=== PATIENT | female | born 1975 | race Caucasian/White ===

== ENCOUNTER 2018-02-05 18:23 | Emergency (ER) | payer OTHER ==
[2018-02-05] MEDS ORDERED: TETRACAINE HCL 0.5% OPH SOLN 2 ML OD ONE (18:43)
[2018-02-05] MEDS ORDERED: TETRACAINE HCL 0.5% OPH SOLN 2 ML ONE (18:44)
--- NOTE | 2018-02-05 18:55 | ER Document Report ---
ED Medical Screen (RME) - General Chief Complaint: Eye Problem Stated Complaint: BLURRED VISION/RIGHT EYE Time Seen by Provider: 02/05/18 18:42 Notes: 42-year-old female who began having right eye blurred vision. This happened several hours ago. She felt as if an eyelash had gotten in her right eye. She then noticed her vision became blurred. She really denies any headache no facial numbness no tingling. No extremity numbness or tingling. No sore throat. Denies any new medications. Stated her eye is blurred when she looked in the mirror her right pupil is twice the size of her left pupil. TRAVEL OUTSIDE OF THE [place] IN LAST 30 DAYS: No - Related Data Allergies/Adverse Reactions: erythromycin base Allergy (Verified 02/05/18 18:31) nickel Allergy (Verified 02/05/18 18:31) Penicillins Allergy (Verified 02/05/18 18:31) Physical Exam - Vital signs Vitals: Temp Pulse Resp BP Pulse Ox 98.6 F 69 18 120/71 100 02/05/18 18:26 02/05/18 18:26 02/05/18 18:26 02/05/18 18:26 02/05/18 18:26 - Notes Notes: Eyes: Right pupil is 8 mm and sluggish left pupil is 4 mm and responsive to light. There is full extraocular movements. Course - Re-evaluation Re-evalutation: 02/05/18 18:54 Funduscopic exam shows some opacity of the lens in a crescent shape in the 7 o' clock position. I can see him follow the vessels into the optic disc. I do not see papilledema or retinal hemorrhages. The eye was numbed with tetracaine and fluorescein dye was instilled there are no corneal abrasions Toney-Pen was used and the pressure measurements of the right eye are 14-15-14 We will proceed with a CT scan of the brain for further evaluation. She denies using any chemicals or topicals or anything that may have gotten in her eye. While it is not unusual to have Anisacorea this seems to be more extreme than I would expect especially with blurred vision. - Vital Signs Vital signs: Temp Pulse Resp BP Pulse Ox 98.6 F 69 18 120/71 100 02/05/18 18:26 02/05/18 18:26 02/05/18 18:26 02/05/18 18:26 02/05/18 18:26 Doctor's Discharge - Discharge Referrals: OLI BEAR MD [Primary Care Provider] - Follow up as needed
--- NOTE | 2018-02-05 19:43 | RADIOLOGY REPORT (SQ) ---
EXAM DESCRIPTION: CT HEAD WITHOUT COMPLETED DATE/TIME: 02/05/2018 7:20 pm REASON FOR STUDY: Blown pupil right COMPARISON: None. TECHNIQUE: Axial images acquired through the brain without intravenous contrast. Images reviewed wi th bone, brain and subdural windows. Images stored on PACS. All CT scanners at this facility use dose modulation, iterative reconstruction, and/or weight based d osing when appropriate to reduce radiation dose to as low as reasonably achievable (ALARA). [facility]: Dose Right [facility]: CareDose [facility]: Dose Right [facility]: Teradose 4D [facility]: Smart [employer] RADIATION DOSE: CT Rad equipment meets quality standard of care and radiation dose reduction techniq ues were employed. CTDIvol: 53.2 mGy. DLP: 1044 mGy-cm. mGy. LIMITATIONS: None. FINDINGS: VENTRICLES: Normal size and contour. CEREBRUM: No masses. No hemorrhage. No midline shift. No evidence for acute infarction. Normal gra y/white matter differentiation. No areas of low density in the white matter. CEREBELLUM: No masses. No hemorrhage. No alteration of density. No evidence for acute infarction. EXTRAAXIAL SPACES: No fluid collections. No masses. ORBITS AND GLOBE: No intra- or extraconal masses. Normal contour of globe without masses. CALVARIUM: No fracture. PARANASAL SINUSES: No fluid or mucosal thickening. SOFT TISSUES: No mass or hematoma. OTHER: No other significant finding. IMPRESSION: NORMAL BRAIN CT WITHOUT CONTRAST. EVIDENCE OF ACUTE STROKE: NO. COMMENT: Quality ID # [id number]: Final reports with documentation of one or more dose reduction techniques (e.g., Automated exposure control, adjustment of the mA and/or kV according to patient size, use of iterative reconstruction technique) TECHNICAL DOCUMENTATION: JOB ID: [id number] [employer].- All Rights Reserved Reading location - IP/workstation name: [email or web address]
--- NOTE | 2018-02-05 20:52 | ER Document Report ---
ED General - General Chief Complaint: Eye Problem Stated Complaint: BLURRED VISION/RIGHT EYE Time Seen by Provider: 02/05/18 18:42 Notes: Patient is a 42-year-old female without chronic medical problems who presents with a dilated right pupil with associated blurring of vision to the right eye. The patient states that she noticed these symptoms around 2 PM today and have been persistent since that time. She denies any history of similar symptoms in the past. Nothing improves or worsens her symptoms. She denies any pain to the eye. She has not contacted her doctor or an supervisor nuclear medicine regarding today 's concerns. She does not normally use contacts or glasses. She denies any trauma to the eye. She denies any additional symptoms including focal weakness , numbness, headache, neck pain, fever, or constitutional symptoms. TRAVEL OUTSIDE OF THE [place] IN LAST 30 DAYS: No - Related Data Allergies/Adverse Reactions: erythromycin base Allergy (Verified 02/05/18 18:31) nickel Allergy (Verified 02/05/18 18:31) Penicillins Allergy (Verified 02/05/18 18:31) Past Medical History - General Information source: Patient - Social History Smoking Status: Former Smoker Frequency of alcohol use: few times a week Drug Abuse: None Lives with: Spouse/Significant other Family History: Reviewed & Not Pertinent Patient has suicidal ideation: No Patient has homicidal ideation: No Renal/ Medical History: Denies: Hx Peritoneal Dialysis Review of Systems - Review of Systems Notes: Constitutional: Negative for fever. HENT: Negative for sore throat. Eyes: Positive for visual changes. Cardiovascular: Negative for chest pain. Respiratory: Negative for shortness of breath. Gastrointestinal: Negative for abdominal pain, vomiting or diarrhea. Genitourinary: Negative for dysuria. Musculoskeletal: Negative for back pain. Skin: Negative for rash. Neurological: Negative for headaches, weakness or numbness. 10 point ROS negative except as marked above and in HPI. Physical Exam - Vital signs Vitals: Temp Pulse Resp BP Pulse Ox 98.6 F 69 18 120/71 100 02/05/18 18:26 02/05/18 18:26 02/05/18 18:26 02/05/18 18:26 02/05/18 18:26 Interpretation: Normal Notes: PHYSICAL EXAMINATION: GENERAL: Well-appearing, well-nourished and in no acute distress. HEAD: Atraumatic, normocephalic. EYES: Right pupil is 8 mm, sluggishly to nonreactive. Left pupil is 4 mm, reactive although no concentric reaction on the right. Extraocular motions are intact. Ocular pressures documented in triage assessment have been noted. Ocular ultrasound without any evidence of vitreous hemorrhage, vitreous detachment or retinal detachment. ENT: nares patent, oropharynx clear without exudates. Moist mucous membranes. NECK: Normal range of motion, supple without lymphadenopathy LUNGS: Breath sounds clear to auscultation bilaterally and equal. No wheezes rales or rhonchi. HEART: Regular rate and rhythm without murmurs ABDOMEN: Soft, nontender, normoactive bowel sounds. No guarding, no rebound. No masses appreciated. EXTREMITIES: Normal range of motion, no pitting or edema. No cyanosis. NEUROLOGICAL: Face symmetric. Tongue protrudes midline. Extraocular motions intact. Pupils are 2 mm and equally reactive. Normal speech, normal gait. 5 out of 5 strength in both the distal and proximal upper and lower extremities bilaterally. Sensation is grossly intact throughout. Finger to nose testing normal. Pronator drift normal. PSYCH: Normal mood, normal affect. SKIN: Warm, Dry, normal turgor, no rashes or lesions noted. - HEENT Visual acuity- Right eye: 20/25 Visual acuity- Left eye: 20/25 Visual acuity- Both eyes: 20/25 Corrective lenses worn: No - Dr. Nunez made aware. Course - Re-evaluation Re-evalutation: 02/05/18 20:46 Patient presents with a unilateral pupillary dilation on the right without associated pain, visual acuity 20/25 although difficulty with near vision as she states that she cannot read her book without covering the right eye. Ocular pressures were 14-15-14 in triage. No evidence of corneal abrasion on fluorescein exam in triage. Patient has full extraocular motions. Minimal reaction of the pupil on the right to light, no concentric reaction with challenge to the left. Ocular ultrasound at the bedside without any evidence of a retinal or vitreous detachment. No evidence of vitreous hemorrhage. Patient denies any associated pain. Clinical picture does not appear consistent with a cranial nerve palsy, acute stroke given that there is no diplopia or hemianopsia. CT the head obtained in triage is noted to be normal. The patient denies any pain making glaucoma or an acute arterial or venous occlusion unlikely and she also has good vision making these diagnoses unlikely. No risk factors for syphilis. I have discussed with the supervisor nuclear medicine Dr. Stockton who states that the patient's use of a scopolamine patch is likely the etiology particularly given that it is a painless pupillary dilation with maintenance of good distal vision. He will follow the patient up in the clinic in the morning. I have reviewed these results with the patient and she is agreeable follow-up in the morning. They will contact the clinic at 8 AM to schedule an appointment. - Vital Signs Vital signs: Temp Pulse Resp BP Pulse Ox 98.6 F 68 18 116/71 98 02/05/18 21:22 02/05/18 21:22 02/05/18 18:26 02/05/18 21:22 02/05/18 21:22 - Diagnostic Test Radiology reviewed: Image reviewed, Reports reviewed Radiology results interpreted by me: 02/06/18 03:58 CT head: No acute intracranial bleed or mass Discharge - Discharge Clinical Impression: Pupillary dilation, Blurring of visual image of right eye Condition: Good Disposition: HOME, SELF-CARE Additional Instructions: Your seen today for dilation of your right pupil with associated blurring of vision. All of your testing here today suggest that this is related to the scopolamine patch that she used. I have discussed with Dr. Stockton and he agrees. He would like to see you tomorrow in the office. He has asked to contact the number listed in your chart for an appointment after 8 AM tomorrow. Please return to the emergency department if you develop pain in the eye, worsening of your vision, vomiting, confusion, weakness, numbness, or any other symptoms that are concerning to you. Referrals: OLI BEAR MD [ACTIVE STAFF] - Follow up as needed HEYDI STOCKTON MD [ACTIVE STAFF] - Follow up tomorrow (Call after 8 AM to set up an appointment for tomorrow)
[2018-02-05 21:25] VITALS: BP 116/71
== END 2018-02-05 21:30 | disposition home or self-care (01) ==
LOC: ER 18:23
DX: H53.8 Other visual disturbances (principal); H57.04 Mydriasis; Z88.1 Allergy status to other antibiotic agents; Z88.0 Allergy status to penicillin; Z87.891 Personal history of nicotine dependence
CPT/HCPCS: 70450; 99284

== ENCOUNTER 2019-07-27 04:13 | Emergency (ER) | payer OTHER ==
[2019-07-27 07:52] LABS: ABSOLUTE EOSINOPHILS # (AUTO) 0.1 10^3/uL (0.0-0.6); ABSOLUTE LYMPHOCYTES (AUTO) 1.4 10^3/uL (0.5-4.7); ABSOLUTE MONOCYTES (AUTO) 0.4 10^3/uL (0.1-1.4); ABSOLUTE NEUT (AUTO) 7.7 10^3/uL (1.7-8.2); BASOPHILS % (AUTO) 0.2 % (0-2); EOSINOPHILS % (AUTO) 0.5 % (0-6); HEMATOCRIT 38.3 % (36.0-47.0); HEMOGLOBIN 13.1 g/dL (12.0-15.5); MEAN CORPUSCULAR HEMOGLOBIN 32.5 pg (27.0-33.4); MEAN CORPUSCULAR HGB CONC 34.1 g/dL (32.0-36.0); MEAN CORPUSCULAR VOLUME 95 fl (80-97); MONOCYTES % (AUTO) 4.6 % (3-13); PLATELET COUNT 282 10^3/uL (150-450); RED BLOOD COUNT 4.02 10^6/uL (3.72-5.28); RED CELL DISTRIBUTION WIDTH 12.7 % (11.5-14.0); SEGMENTED NEUTROPHILS % (AUTO) 79.7 % (42-78); TOTAL CELLS COUNTED % (AUTO) 100 %; WHITE BLOOD COUNT 9.7 10^3/uL (4.0-10.5)
[2019-07-27 07:53] LABS: ALKALINE PHOSPHATASE 52 U/L (38-126); ANION GAP 8 (5-19); ASPARTATE AMINO TRANSFERASE 19 U/L (14-36); BILIRUBIN,DIRECT 0.3 mg/dL (0.0-0.4); BILIRUBIN,TOTAL 0.4 mg/dL (0.2-1.3); BLOOD UREA NITROGEN 13 mg/dL (7-20); CALCIUM 9.2 mg/dL (8.4-10.2); CARBON DIOXIDE 25 mmol/L (22-30); CHLORIDE 105 mmol/L (98-107); GLUCOSE 99 mg/dL (75-110); POTASSIUM 4.7 mmol/L (3.6-5.0); TOTAL PROTEIN 6.8 g/dL (6.3-8.2)
[2019-07-27 08:24] LABS: APPEARANCE,URINE CLEAR; BILIRUBIN,URINE NEGATIVE (NEGATIVE); COLOR,URINE YELLOW; GLUCOSE, URINE NEGATIVE (NEGATIVE); KETONES,URINE NEGATIVE (NEGATIVE); LEUKOCYTE ESTERASE,URINE NEGATIVE (NEGATIVE); NITRITE,URINE NEGATIVE (NEGATIVE); PROTEIN,URINE NEGATIVE (NEGATIVE); URINE SPECIFIC GRAVITY 1.015; UROBILINOGEN,URINE NEGATIVE mg/dL (<2.0)
--- NOTE | 2019-07-27 09:57 | RADIOLOGY REPORT (SQ) ---
EXAM DESCRIPTION: U/S OB TRANSVAGINAL W/O DOP COMPLETED DATE/TIME: 07/27/2019 9:47 am REASON FOR STUDY: vaginal bleeding + COMPARISON: None. TECHNIQUE: Transvaginal static and realtime grayscale images acquired of the pelvis. Additional dianna cted spectral and color Doppler images recorded. All images stored on PACs. CLINICAL AGE: 7 weeks 1 day [facility].6 LIMITATIONS: None. FINDINGS: UTERUS: No visualized intrauterine . RIGHT ADNEXA: Ovary not identified due to poor acoustical window. No adnexal free fluid. No adnexal masses. LEFT ADNEXA: Normal ovary with normal vascular flow. No adnexal free fluid. 2.2 cm cyst. FREE FLUID: None. OTHER: No other significant finding. IMPRESSION: NO VISUALIZED INTRA- OR EXTRAUTERINE . bHCG LEVEL TOO LOW TO EXPECT VISUALIZATION OF . ECTOPIC CANNOT BE EXCLUDED. FOLLOW-UP ULTRASOUND AND SERIAL BHCG LEVELS STRONGLY RECOMMENDED TO ACCURATELY ASSESS STATU S. Right ovary not identified. COMMENT: HCG levels in early chart 7-8 weeks: 7,560-229,000 mIU/ml * TECHNICAL DOCUMENTATION: JOB ID: [id number] [employer]- All Rights Reserved Reading location - IP/workstation name: [email or web address]
--- NOTE | 2019-07-27 10:53 | ER Document Report ---
ED General - General Chief Complaint: Abdominal Pain >50 Stated Complaint: DIZZINESS/VAGINAL BLEEDING Time Seen by Provider: 07/27/19 10:51 Mode of Arrival: Ambulatory Information source: Patient Notes: 43-year-old female arrives by POV with her Leighton as transfer driver; he is a [place] [employer] assistant and patient works as a software security consultant and just recently got back from [place] on last Monday. On 09 December patient tested positive on a Divehi test and then because she did not trust this test she did another one on Monday and this was positive. Today is Monday. Patient denies any contact with coronavirus while she was in [place] Patient denies any cough or cold or rhinorrhea or symptoms. She does complain of left inguinal pain radiating down her left medial thigh. Patient was having some vaginal bleeding this morning which awoke her from sleep at 330 and she actually fell passed out in the bathroom. Patient's ultrasound today reveals no intra-or extra uterine . However radiologist reports the beta hCG is too low at this time for any correlation. Also cannot exclude ectopic . CBC and CMP were normal urine was normal hCG was 2300. At 1115 I discussed this case with Dr. Jessica Oneill and she advises patient to be seen as outpatient at 10 AM on Monday morning in her office for repeat hCG and possible ultrasound. She advises me to tell the patient that if she has any worsening symptoms to come back immediately and also bedrest vaginal rest and increase fluids TRAVEL OUTSIDE OF THE [place] IN LAST 30 DAYS: Yes - [place] - [facility] Onset: This morning - Related Data Allergies/Adverse Reactions: erythromycin base Allergy (Verified 02/05/18 18:31) nickel Allergy (Verified 02/05/18 18:31) Penicillins Allergy (Verified 02/05/18 18:31) Home Medications: zyrtec. multivitamin Past Medical History - General Information source: Patient - Social History Smoking Status: Former Smoker Cigarette use (# per day): No Chew tobacco use (# tins/day): No Smoking Education Provided: No Frequency of alcohol use: None Drug Abuse: None Lives with: Family Family History: Reviewed & Not Pertinent Patient has suicidal ideation: No Patient has homicidal ideation: No Renal/ Medical History: Denies: Hx Peritoneal Dialysis Review of Systems - Review of Systems Constitutional: No symptoms reported EENT: No symptoms reported Cardiovascular: No symptoms reported Respiratory: No symptoms reported Gastrointestinal: Abdominal pain Genitourinary: No symptoms reported Female Genitourinary: No symptoms reported Musculoskeletal: No symptoms reported Skin: No symptoms reported Hematologic/Lymphatic: No symptoms reported Neurological/Psychological: No symptoms reported Physical Exam - Vital signs Vitals: Temp Pulse Resp BP Pulse Ox 97.9 F 76 20 105/63 100 07/27/19 04:32 07/27/19 04:32 07/27/19 04:32 07/27/19 04:32 07/27/19 04:32 Interpretation: Normal - General General appearance: Appears well - HEENT Head: Normocephalic Eyes: Normal Conjunctiva: Normal Cornea: Normal Extraocular movements intact: Yes Eyelashes: Normal Pupils: PERRL Mouth/Lips: Normal Mucous membranes: Dry Pharynx: Normal Neck: Normal - Respiratory Respiratory status: No respiratory distress Chest status: Nontender Breath sounds: Normal Chest palpation: Normal - Cardiovascular Rhythm: Regular Heart sounds: Normal auscultation Murmur: No Friction rub: No Ligia's crunch: No - Abdominal Inspection: Normal Distension: No distension Bowel sounds: Hypoactive Tenderness: Tender - Lower quadrant on palpation - Genitourinary External exam: Normal Speculum exam: Normal Vaginal bleeding: Mild Bimanuel exam: Normal - Extremities General upper extremity: Normal inspection General lower extremity: Normal inspection - Neurological Neuro grossly intact: Yes Cognition: Normal Orientation: AAOx4 Yossi Coma Scale Eye Opening: Spontaneous [place] Coma Scale Verbal: Oriented [place] Coma Scale Motor: Obeys Commands [place] Coma Scale Total: 15 Speech: Normal Cranial nerves: Normal Cerebellar coordination: Normal - Psychological Associated symptoms: Normal affect - Skin Skin Temperature: Warm Skin Moisture: Dry Course - Vital Signs Vital signs: Temp Pulse Resp BP Pulse Ox 98.3 F 78 16 103/84 99 07/27/19 10:14 07/27/19 10:14 07/27/19 10:14 07/27/19 10:14 07/27/19 10:14 - Laboratory Result Diagrams: 07/27/19 07:24 07/27/19 07:24 Laboratory results interpreted by me: 07/27/19 07/27/19 07/27/19 07:24 07:24 07:34 Seg Neutrophils % 79.7 H Beta HCG, Quant 2303.60 H Urine Blood SMALL H - Diagnostic Test Radiology reviewed: Reports reviewed Critical Care Note - Critical Care Note Total time excluding time spent on procedures (mins): 90 Comments: I discussed the lab findings and ultrasound findings with patient and with Leighton. Also discussed with them the conversation with Dr. Jessica Oneill, OB doctor and advised him to follow-up in her office at 10 AM with her for repeat hCG and possible ultrasound. Also advised her vaginal rest bedrest and only to get up with assistance to bathroom and to return to ER if symptoms exacerbate or persist. Also if URI symptoms arise like with influenza or coronavirus to return with facemask. Since you report that everyone in your job office are sick with URI symptoms advised proper handwashing and facemask as well. Discharge - Discharge Clinical Impression: Elevated serum hCG, Near syncope Abdominal pain Qualifiers: Abdominal location: left lower quadrant Qualified Code(s): R10.32 - Left lower quadrant pain Condition: Good Disposition: HOME, SELF-CARE Additional Instructions: Follow-up with Dr. Jessica Oneill in her office at 1000 hrs. on Monday. Also if URI symptoms arise like with influenza or coronavirus to return with facemask. Since you report that everyone in your job office are sick with URI symptoms advised proper handwashing and facemask as well. Also complete bedrest and vaginal rest and encourage fluids till seen by Dr. Oneill Forms: Return to Work
[2019-07-27 12:12] VITALS: BP 110/62
== END 2019-07-27 12:10 | disposition home or self-care (01) ==
LOC: ER 04:13
DX: Z32.01 Encounter for pregnancy test, result positive (principal); R10.32 Left lower quadrant pain; R10.9 Unspecified abdominal pain; R42 Dizziness and giddiness; M79.652 Pain in left thigh; Z88.0 Allergy status to penicillin; Z88.8 Allergy status to other drugs, medicaments and biological substances; Z88.1 Allergy status to other antibiotic agents; Z87.891 Personal history of nicotine dependence
CPT/HCPCS: 36415; 76817; 80053; 81001; 83690; 84702; 85025; 86900; 86901; 99285

== ENCOUNTER → 2019-07-29 | Outpatient (CLI) | payer OTHER | LOC: OD 11:53 | PROVIDERS: ATTEND Obstetrics & Gynecology | DX: O20.0 Threatened abortion (principal); Z3A.00 Weeks of gestation of pregnancy not specified | CPT/HCPCS: 36415; 84702; 86900; 86901 ==

== ENCOUNTER → 2019-07-31 | Outpatient (CLI) | payer OTHER | LOC: OD 08:47 | PROVIDERS: ATTEND Obstetrics & Gynecology | DX: O03.9 Complete or unspecified spontaneous abortion without complication (principal) | CPT/HCPCS: 36415; 84702 ==